=== PATIENT | female | born 1940 | race African-American/Black ===

== ENCOUNTER 2018-11-23 15:17 | Inpatient (IN) | payer MEDICARE, MEDICAID ==
[~2018-11-23] VITALS: Ht 162.6 cm; Wt 74.8 kg
[~2018-11-23 15:17] MED LIST: Bisacodyl PO; Docusate Sodium PO; FERR-43 PO
[2018-11-23] MEDS ORDERED: SODIUM CHLORIDE 0.9% 1,000 ML IV ONE (16:06)
[2018-11-23] MEDS ORDERED: MECLIZINE 25MG TABLET PO ONE (16:30)
[2018-11-23] MEDS ORDERED: ONDANSETRON HCL 4MG/2ML INJ IV ONE (16:30)
[2018-11-23 16:39] LABS: CLARITY URINE CLEAR (CLEAR); COLOR URINE YELLOW (YELLOW); KETONES URINE TRACE (NEGATIVE); LEUKOCYTE ESTERASE URINE TRACE (NEGATIVE); NITRITE URINE NEGATIVE (NEGATIVE); OCCULT BLOOD URINE NEGATIVE (NEGATIVE); PROTEIN URINE TRACE (NEGATIVE); SPECIFIC GRAVITY URINE 1.009 (1.005-1.030); UROBILINOGEN URINE 0.2 E.U./dL (0.2-1.0)
[2018-11-23 16:44] LABS: BASOPHILS % 0.2 % (0.0-2.0); EOSINOPHILS % 0.3 % (0.0-5.0); HEMATOCRIT. 36.4 % (36.0-48.0); HEMOGLOBIN. 12.3 g/dL (12.0-16.0); LYMPHOCYTES % 25.1 % (20.0-50.0); MEAN CORPUSCULAR VOLUME 77.2 fL (81.0-99.0); MEAN PLATELET VOLUME 8.2 fl (7.4-10.4); MONOCYTES % 5.1 % (2.0-8.0); NEUTROPHILS % 69.3 % (40.0-76.0); PLATELET 227 x1000/uL (130-400); RED BLOOD CELL COUNT 4.72 mill/uL (4.2-5.4); RED CELL DISTRIBUTION WIDTH 16.3 % (11.6-14.6)
[2018-11-23 16:46] LABS: CHLORIDE 110 mEq/L (98-107)
[2018-11-23] MEDS ORDERED: ASPIRIN 325MG EC TABLET PO ONE (18:15)
[2018-11-23 20:00] VITALS: BP 163/64
[2018-11-23] MEDS ORDERED: TEMAZEPAM 15MG CAPSULE PO PRN (22:15)
[2018-11-23] MEDS ORDERED: MAGNESIUM HYDROXIDE 400MG/5ML 30ML UDC PO PRN (22:15)
[2018-11-23] MEDS ORDERED: GUAIFENESIN 200MG/10ML SUGAR FREE UDC PO PRN (22:15)
[2018-11-23] MEDS ORDERED: ACETAMINOPHEN 325MG TABLET PO PRN (22:15)
[2018-11-23] MEDS ORDERED: MECLIZINE 25MG TABLET PO PRN (22:15)
[2018-11-23] MEDS ORDERED: CLONIDINE 0.1MG TABLET PO PRN (22:15)
[2018-11-23] MEDS ORDERED: DIPHENHYDRAMINE 50MG/ML VIAL IV PRN (22:15)
[2018-11-23] MEDS ORDERED: LORAZEPAM 0.5MG TABLET PO PRN (22:15)
[2018-11-23] MEDS ORDERED: ONDANSETRON HCL 4MG/2ML INJ IV PRN (22:15)
[2018-11-23 22:29] VITALS: BP 163/64
[2018-11-23] MEDS: DEXT 5%/0.45% NACL 1000ML 1,000 ML IV SCH (23:21)
[2018-11-24] VITALS: BP 158/72
[2018-11-24] MEDS ORDERED: HYDRALAZINE 20MG/ML VIAL IV PRN (00:30)
[2018-11-24 04:00] VITALS: BP 102/69
[2018-11-24] MEDS ORDERED: FERR-71 PO (05:04)
[2018-11-24] MEDS ORDERED: METO-396 PO (05:04)
[2018-11-24] MEDS ORDERED: MELO-106 PO (05:04)
[2018-11-24] MEDS ORDERED: LOSA1TAB40 MT (05:04)
[2018-11-24 08:00] VITALS: BP 114/66
[2018-11-24] MEDS ORDERED: LOSARTAN POTASSIUM 50 MG TABLET PO SCH (09:00)
[2018-11-24] MEDS: DEXT 5%/0.45% NACL 1000ML 1,000 ML IV SCH (09:18)
[2018-11-24] MEDS: ASPIRIN 81MG EC TABLET PO SCH (09:18)
[2018-11-24 12:00] VITALS: BP 111/52
[2018-11-24 16:00] VITALS: BP 147/47
[2018-11-24 20:00] VITALS: BP 90/39
[2018-11-24] MEDS: MECLIZINE 25MG TABLET PO SCH (22:28)
[2018-11-25] VITALS: BP 100/51
[2018-11-25 04:00] VITALS: BP 128/71
[2018-11-25] MEDS: MECLIZINE 25MG TABLET PO SCH ×3 (05:40→22:14)
[2018-11-25 08:00] VITALS: BP 134/56
[2018-11-25] MEDS: ASPIRIN 81MG EC TABLET PO SCH (08:31)
[2018-11-25 12:00] VITALS: BP 139/59
[2018-11-25 16:00] VITALS: BP 130/59
[2018-11-25 19:44] LABS: BASOPHILS % 0.5 % (0.0-2.0); EOSINOPHILS % 2.2 % (0.0-5.0); HEMATOCRIT. 37.5 % (36.0-48.0); HEMOGLOBIN. 12.2 g/dL (12.0-16.0); LYMPHOCYTES % 38.6 % (20.0-50.0); MEAN CORPUSCULAR HEMOGLOBIN 25.4 pg (28.0-32.0); MEAN CORPUSCULAR VOLUME 78.2 fL (81.0-99.0); MONOCYTES % 8.4 % (2.0-8.0); NEUTROPHILS % 50.3 % (40.0-76.0); PLATELET 239 x1000/uL (130-400); RED BLOOD CELL COUNT 4.79 mill/uL (4.2-5.4); RED CELL DISTRIBUTION WIDTH 16.1 % (11.6-14.6)
[2018-11-25 19:52] LABS: CHLORIDE 111 mEq/L (98-107)
[2018-11-25 20:00] VITALS: BP 103/48
[2018-11-26] VITALS: BP 117/55
[2018-11-26 04:00] VITALS: BP 118/58
[2018-11-26] MEDS: MECLIZINE 25MG TABLET PO SCH ×3 (05:50→19:36)
[2018-11-26 08:00] VITALS: BP 136/74
[2018-11-26 08:00] LABS: BASOPHILS % 0.5 % (0.0-2.0); EOSINOPHILS % 1.6 % (0.0-5.0); HEMOGLOBIN. 11.8 g/dL (12.0-16.0); LYMPHOCYTES % 35.6 % (20.0-50.0); MEAN CORPUSCULAR HEMOGLOBIN 26.3 pg (28.0-32.0); MEAN CORPUSCULAR VOLUME 77.8 fL (81.0-99.0); MEAN PLATELET VOLUME 7.8 fl (7.4-10.4); MONOCYTES % 9.9 % (2.0-8.0); NEUTROPHILS % 52.4 % (40.0-76.0); PLATELET 234 x1000/uL (130-400); RED CELL DISTRIBUTION WIDTH 16.5 % (11.6-14.6)
[2018-11-26] MEDS: ASPIRIN 81MG EC TABLET PO SCH (09:15)
[2018-11-26] MEDS ORDERED: LEVOTHYROXINE SODIUM 50MCG TABLET PO NR (11:30)
[2018-11-26 12:00] VITALS: BP 116/48
[2018-11-26 16:00] VITALS: BP 101/41
[2018-11-26 18:45] VITALS: BP 101/41
[2018-11-27] MEDS ORDERED: LEVOTHYROXINE SODIUM 50MCG TABLET PO SCH (06:45)
== END 2018-11-26 20:33 | disposition home or self-care (01) | DRG 201 ==
LOC: ER 15:20 → EDBEDREQ 16:45 → 5WST 18:05 → EDBEDREQ 18:08 → ENRESERV 20:10
PROVIDERS: ADMIT Internal Medicine; ATTEND Internal Medicine
DX: I47.1 Supraventricular tachycardia (principal); E87.0 Hyperosmolality and hypernatremia; D63.8 Anemia in other chronic diseases classified elsewhere; I11.9 Hypertensive heart disease without heart failure; D32.9 Benign neoplasm of meninges, unspecified; M19.90 Unspecified osteoarthritis, unspecified site; E03.9 Hypothyroidism, unspecified; Z96.651 Presence of right artificial knee joint; M17.10 Unilateral primary osteoarthritis, unspecified knee; E78.00 Pure hypercholesterolemia, unspecified; Z82.49 Family history of ischemic heart disease and other diseases of the circulatory system; Z79.899 Other long term (current) drug therapy; R00.1 Bradycardia, unspecified
CPT/HCPCS: 36415; 70544; 70553; 71045; 80048; 80061; 81003; 82962; 83735; 84443; 84484; 93005; 93306; 93880; 96374; 96375; 97162; 99285; J2405; J7030; J8597

== ENCOUNTER 2024-04-07 23:42 | Inpatient (IN) | payer MEDICARE, MEDICAID ==
[~2024-04-07] VITALS: Ht 175.3 cm; Wt 79.8 kg
[~2024-04-07 23:42] MED LIST changes: -Bisacodyl PO; -Docusate Sodium PO; -FERR-43 PO; +FERR-71 PO; +LOSA1TAB40 MT; +MELO-106 PO; +METO-396 MT
[2024-04-08] MEDS: SODIUM CHLORIDE 0.9% 1,000 ML IV ONE (00:38)
[2024-04-08 00:41] LABS: BASOPHILS % 0.6 % (0.0-2.0); EOSINOPHILS % 1.2 % (0.0-5.0); HEMATOCRIT. 32.7 % (36.0-48.0); HEMOGLOBIN. 10.5 g/dL (12.0-16.0); LYMPHOCYTES % 25.6 % (20.0-50.0); MEAN CORPUSCULAR HEMOGLOBIN 25.7 pg (28.0-32.0); MEAN CORPUSCULAR HGB CONC 32.1 g/dL (31.0-37.0); MEAN CORPUSCULAR VOLUME 80.1 fL (81.0-99.0); MEAN PLATELET VOLUME 8.2 fl (7.4-10.4); MONOCYTES % 10.4 % (2.0-8.0); NEUTROPHILS % 62.2 % (40.0-76.0); PLATELET 209 x1000/uL (130-400); RED BLOOD CELL COUNT 4.09 mill/uL (4.2-5.4); RED CELL DISTRIBUTION WIDTH 16.5 % (11.6-14.6); WHITE BLOOD COUNT 6.1 x1000/uL (4.5-11.0)
[2024-04-08 00:51] LABS: CHLORIDE 112 mEq/L (98-107); POTASSIUM 3.4 mEq/L (3.5-5.1); SODIUM 146 mEq/L (136-145)
[2024-04-08 00:52] LABS: CARBON DIOXIDE 27 mEq/L (21-32)
[2024-04-08 00:53] LABS: CALCIUM 8.4 mg/dL (8.7-10.4)
[2024-04-08 00:57] LABS: CREATININE 1.3 mg/dL (0.6-1.0)
[2024-04-08 00:58] LABS: GLUCOSE 96 mg/dL (70-105); TROPONIN I HIGH SENSITIVITY 19 ng/L (3.0-34); UREA NITROGEN BLOOD 35 mg/dL (9-23)
[2024-04-08] MEDS ORDERED: NOREPINEPHRINE 8MG/250ML PMX 250 ML IV PRN (03:45)
[2024-04-08] MEDS ORDERED: AMLO2.5T45 PO (04:53)
[2024-04-08] MEDS ORDERED: ERGO50CA PO (04:53)
[2024-04-08] MEDS ORDERED: ATOR20TA65 PO (04:53)
[2024-04-08] MEDS ORDERED: ASPI-1497 PO (04:53)
[2024-04-08] MEDS ORDERED: LOSA25TA26 PO (04:53)
[2024-04-08] MEDS ORDERED: HYDRALAZINE 20MG/ML VIAL IV PRN (05:00)
[2024-04-08] MEDS ORDERED: ACETAMINOPHEN 325MG TABLET PO PRN (05:00)
[2024-04-08] MEDS ORDERED: IPRATROPIUM/ALBUTEROL 0.5-3(2.5)MG/3ML NEB HHN PRN (05:00)
[2024-04-08] MEDS ORDERED: ONDANSETRON HCL 4MG/2ML INJ IV PRN (05:00)
[2024-04-08] MEDS ORDERED: DOCUSATE SODIUM 100MG CAPSULE PO PRN (05:00)
[2024-04-08] MEDS ORDERED: GUAIFENESIN 200MG/10ML SUGAR FREE UDC PO PRN (05:00)
[2024-04-08] MEDS ORDERED: MAGNESIUM/ALUMINUM HYDROXIDE/SIMETHICONE 30ML UDC PO PRN (05:00)
[2024-04-08] MEDS ORDERED: MELATONIN 3MG TABLET PO PRN (05:00)
[2024-04-08 05:04] VITALS: BP 135/57; PULSE 56; RESP 20; TEMP 36.418
[2024-04-08 05:19] VITALS: BP 135/57; PULSE 56; RESP 20; TEMP 36.3918; O2SAT 100
[2024-04-08] MEDS: DEXT 5%/0.45% NACL 1000ML 1,000 ML IV SCH (05:55)
[2024-04-08] MEDS ORDERED: IOHEXOL-350 100 ML BOTTLE ONE (07:12)
[2024-04-08 08:00] VITALS: BP 139/53; PULSE 65; RESP 16; TEMP 36.50292; O2SAT 94
[2024-04-08] MEDS: POTASSIUM CHLORIDE 20MEQ/PACKET PO NR (09:19)
[2024-04-08] MEDS: ENOXAPARIN 30MG/0.3ML SYR SUBCUT SCH (09:20)
[2024-04-08 11:04] LABS: CLARITY URINE CLEAR (CLEAR); COLOR URINE YELLOW (YELLOW); GLUCOSE URINE NEGATIVE (NEGATIVE); KETONES URINE NEGATIVE (NEGATIVE); LEUKOCYTE ESTERASE URINE NEGATIVE (NEGATIVE); NITRITE URINE NEGATIVE (NEGATIVE); OCCULT BLOOD URINE NEGATIVE (NEGATIVE); PH URINE 5.5 (4.5-8.0); PROTEIN URINE NEGATIVE (NEGATIVE); SPECIFIC GRAVITY URINE 1.025 (1.005-1.030); UROBILINOGEN URINE 0.2 E.U./dL (0.2-1.0)
[2024-04-08 11:24] LABS: *AMPHETAMINES SCREEN URINE NEGATIVE (NEGATIVE); *BARBITURATES SCREEN URINE NEGATIVE (NEGATIVE); *BENZODIAZEPINES SCREEN URINE NEGATIVE (NEGATIVE); *COCAINE SCREEN URINE NEGATIVE (NEGATIVE)
[2024-04-08 11:25] LABS: CANNABINOID URINE SCREEN NEGATIVE (NEGATIVE); ECSTASY MDMA SCREEN URINE NEGATIVE (NEGATIVE); METHADONE URINE SCREEN NEGATIVE (NEGATIVE); OPIATES URINE SCREEN NEGATIVE (NEGATIVE); PHENCYCLIDINE URINE SCREEN NEGATIVE (NEGATIVE)
[2024-04-08 11:57] LABS: HEPATITIS B SURFACE ANTIGEN NEGATIVE (Negative)
[2024-04-08 12:00] VITALS: BP 133/54; PULSE 63; RESP 16; TEMP 35.78064; O2SAT 100
[2024-04-08 12:19] LABS: HEPATITIS C AB NON REACTIVE (Neg) (Negative)
[2024-04-08 12:41] LABS: CHLORIDE 112 mEq/L (98-107); POTASSIUM 3.5 mEq/L (3.5-5.1); SODIUM 147 mEq/L (136-145)
[2024-04-08 12:42] LABS: CALCIUM 8.6 mg/dL (8.7-10.4); CARBON DIOXIDE 23 mEq/L (21-32)
[2024-04-08 12:47] LABS: CREATININE 1.3 mg/dL (0.6-1.0); GLUCOSE 85 mg/dL (70-105); TRIGLYCERIDE 91 mg/dL (0-150); UREA NITROGEN BLOOD 36 mg/dL (9-23)
[2024-04-08 12:48] LABS: LDL CHOLESTEROL 71 mg/dL (5-100)
[2024-04-08 12:49] LABS: CHOLESTEROL 139 mg/dL (<200); HDL CHOLESTEROL 52 mg/dL (>65); PHOSPHORUS 3.9 mg/dL (2.5-4.9)
[2024-04-08 12:51] LABS: T4 FREE 0.92 ng/dL (0.89-1.76)
[2024-04-08 12:52] LABS: THYROID STIMULATING HORMONE 6.64 uIU/mL (0.55-4.78)
[2024-04-08 13:31] LABS: BASOPHILS % 0.5 % (0.0-2.0); HEMATOCRIT. 35.4 % (36.0-48.0); HEMOGLOBIN. 11.3 g/dL (12.0-16.0); LYMPHOCYTES % 28.3 % (20.0-50.0); MEAN CORPUSCULAR HEMOGLOBIN 25.6 pg (28.0-32.0); MEAN CORPUSCULAR HGB CONC 31.9 g/dL (31.0-37.0); MEAN CORPUSCULAR VOLUME 80.1 fL (81.0-99.0); MEAN PLATELET VOLUME 8.3 fl (7.4-10.4); MONOCYTES % 9.3 % (2.0-8.0); NEUTROPHILS % 60.9 % (40.0-76.0); PLATELET 207 x1000/uL (130-400); RED BLOOD CELL COUNT 4.42 mill/uL (4.2-5.4); RED CELL DISTRIBUTION WIDTH 16.5 % (11.6-14.6); WHITE BLOOD COUNT 5.9 x1000/uL (4.5-11.0)
[2024-04-08 16:00] VITALS: BP 134/69; PULSE 60; RESP 18; TEMP 36.44736; O2SAT 99
[2024-04-08] MEDS: ASPIRIN 81MG EC TABLET PO SCH (16:30)
[2024-04-08 20:00] VITALS: BP 133/63; PULSE 58; RESP 18; TEMP 36.50292; O2SAT 98
[2024-04-08] MEDS: ATORVASTATIN CALCIUM 10MG TABLET PO SCH (20:53)
[2024-04-08] MEDS: FAMOTIDINE 20MG TABLET PO SCH (20:54)
[2024-04-09] VITALS: BP 119/89; PULSE 71; RESP 18; TEMP 36.3918; O2SAT 98
[2024-04-09 04:00] VITALS: BP 122/61; PULSE 60; RESP 19; TEMP 36.61404; O2SAT 100
[2024-04-09 08:22] VITALS: BP 138/78; PULSE 67; RESP 18; TEMP 36.55848; O2SAT 100
[2024-04-09] MEDS: AMLODIPINE 2.5MG TABLET PO SCH (08:55)
[2024-04-09 11:55] VITALS: BP 134/63; PULSE 68; RESP 18; TEMP 36.3918; TEMP 36.39180; O2SAT 100
[2024-04-09 12:53] VITALS: BP 134/63; PULSE 68; TEMP 97.5; O2SAT 100
== END 2024-04-09 13:30 | disposition home or self-care (01) | DRG 201 ==
LOC: ER 23:42 → 7WST 04-08 02:39 → EDBEDREQTM 04-08 02:41 → EDBEDREQ 04-08 02:41
PROVIDERS: ADMIT Internal Medicine; ATTEND Internal Medicine
DX: I49.5 Sick sinus syndrome (principal); G93.49 Other encephalopathy; I12.0 Hypertensive chronic kidney disease with stage 5 chronic kidney disease or end stage renal disease; E87.0 Hyperosmolality and hypernatremia; N17.9 Acute kidney failure, unspecified; I95.9 Hypotension, unspecified; N18.6 End stage renal disease; E87.6 Hypokalemia; D32.0 Benign neoplasm of cerebral meninges; E11.22 Type 2 diabetes mellitus with diabetic chronic kidney disease; E78.00 Pure hypercholesterolemia, unspecified; Z96.651 Presence of right artificial knee joint; I07.1 Rheumatic tricuspid insufficiency; E03.9 Hypothyroidism, unspecified; M17.11 Unilateral primary osteoarthritis, right knee; K57.30 Diverticulosis of large intestine without perforation or abscess without bleeding; F03.90 Unspecified dementia, unspecified severity, without behavioral disturbance, psychotic disturbance, mood disturbance, and anxiety; Z79.82 Long term (current) use of aspirin
CPT/HCPCS: 36415; 71045; 71275; 74176; 80048; 80061; 80305; 80320; 81003; 82962; 83036; 83605; 83735; 83880; 84100; 84145; 84439; 84443; 84484; 85025; 85379; 86705; 86850; 86900; 87340; 93005; 93970; 99285; C1893; J1650; J7030; Q9967; G0480